=== PATIENT | female | born 1940 | race American Indian/Alaskan Native ===

== ENCOUNTER 2018-03-17 13:07 | Outpatient (CLI) | payer OTHER | END 2018-03-17 17:00 | disposition home or self-care (01) | LOC: RAD 13:07 | DX: S22.32XA Fracture of one rib, left side, initial encounter for closed fracture (principal); S22.31XA Fracture of one rib, right side, initial encounter for closed fracture ==

== ENCOUNTER 2018-04-25 11:37 | Outpatient (CLI) | payer OTHER | END 2018-04-25 15:44 | disposition home or self-care (01) | LOC: RAD 11:37 | DX: M71.21 Synovial cyst of popliteal space [Baker], right knee (principal) | CPT/HCPCS: 73721 ==

== ENCOUNTER 2018-08-20 10:50 | Outpatient (CLI) | payer OTHER | END 2018-08-20 16:16 | disposition home or self-care (01) | LOC: MAMO-SONO 10:50 | DX: Z12.31 Encounter for screening mammogram for malignant neoplasm of breast (principal); Z87.898 Personal history of other specified conditions; N64.89 Other specified disorders of breast ==

== ENCOUNTER 2019-02-17 13:28 | Outpatient (CLI) | payer OTHER | END 2019-02-17 15:17 | disposition home or self-care (01) | LOC: RAD 13:28 | DX: J98.4 Other disorders of lung (principal) ==

== ENCOUNTER 2019-03-17 10:49 | Outpatient (CLI) | payer OTHER | END 2019-03-17 17:00 | disposition home or self-care (01) | LOC: MRI 10:49 | DX: R41.3 Other amnesia (principal); R51 Headache | CPT/HCPCS: 70551 ==

== ENCOUNTER → 2020-08-09 | Outpatient (CLI) | payer OTHER | END | disposition home or self-care (01) | LOC: MAMO-SONO 10:47 | PROVIDERS: ATTEND Radiology Diagnostic Radiology | DX: Z12.31 Encounter for screening mammogram for malignant neoplasm of breast (principal); N64.59 Other signs and symptoms in breast; R92.0 Mammographic microcalcification found on diagnostic imaging of breast ==

== ENCOUNTER → 2020-10-10 | Outpatient (CLI) | payer OTHER | END | disposition home or self-care (01) | LOC: MRI 11:18 | PROVIDERS: ATTEND Neurological Surgery | DX: M48.02 Spinal stenosis, cervical region (principal); Z98.1 Arthrodesis status | CPT/HCPCS: 72141 ==

== ENCOUNTER 2020-10-18 09:42 | Outpatient (CLI) | payer OTHER | END 2020-10-18 15:00 | disposition home or self-care (01) | LOC: LAB 09:42 | PROVIDERS: ATTEND Radiology Diagnostic Radiology | DX: Z51.81 Encounter for therapeutic drug level monitoring (principal) ==

== ENCOUNTER → 2020-10-18 | Outpatient (CLI) | payer OTHER | END | disposition home or self-care (01) | LOC: MRI 09:41 | DX: G93.89 Other specified disorders of brain (principal); I67.89 Other cerebrovascular disease; R41.3 Other amnesia | CPT/HCPCS: 70553; A9575 ==

== ENCOUNTER 2021-05-16 11:25 | Outpatient (CLI) | payer OTHER | END 2021-05-16 18:00 | disposition home or self-care (01) | LOC: TOM 11:25 | PROVIDERS: ATTEND Radiology Diagnostic Radiology | DX: K44.9 Diaphragmatic hernia without obstruction or gangrene (principal); K57.92 Diverticulitis of intestine, part unspecified, without perforation or abscess without bleeding; R10.84 Generalized abdominal pain ==

== ENCOUNTER 2021-09-12 13:05 | Outpatient (CLI) | payer OTHER | END 2021-09-12 14:00 | disposition home or self-care (01) | LOC: MAMO-SONO 13:05 | PROVIDERS: ATTEND Radiology Diagnostic Radiology | DX: Z12.31 Encounter for screening mammogram for malignant neoplasm of breast (principal) ==

== ENCOUNTER 2022-01-08 11:32 | Outpatient (CLI) | payer OTHER | END 2022-01-08 12:00 | disposition home or self-care (01) | LOC: SONOGRAMA 11:32 | PROVIDERS: ATTEND Neurological Surgery | DX: M54.59 Other low back pain (principal); N39.0 Urinary tract infection, site not specified; N32.0 Bladder-neck obstruction; N31.0 Uninhibited neuropathic bladder, not elsewhere classified; M48.061 Spinal stenosis, lumbar region without neurogenic claudication ==

== ENCOUNTER 2022-04-19 10:17 | Outpatient (CLI) | payer OTHER | END 2022-04-19 10:20 | disposition home or self-care (01) | LOC: TOM 10:17 | PROVIDERS: ATTEND Neurological Surgery | DX: R51.9 Headache, unspecified (principal); R42 Dizziness and giddiness ==

== ENCOUNTER → 2022-10-12 | Outpatient (CLI) | payer OTHER | END | disposition home or self-care (01) | LOC: MRI 13:48 | PROVIDERS: ATTEND Neurological Surgery | DX: M54.59 Other low back pain (principal); M48.061 Spinal stenosis, lumbar region without neurogenic claudication | CPT/HCPCS: 72148 ==

== ENCOUNTER 2022-12-26 12:15 | Outpatient (CLI) | payer OTHER | END 2022-12-26 13:15 | disposition home or self-care (01) | LOC: RAD 12:15 | PROVIDERS: ATTEND Neurological Surgery | DX: M54.59 Other low back pain (principal) ==

== ENCOUNTER 2022-12-26 13:40 | Outpatient (CLI) | payer OTHER | END 2022-12-26 13:41 | disposition home or self-care (01) | LOC: NUCLEAR 13:40 | PROVIDERS: ATTEND Neurological Surgery | DX: M48.061 Spinal stenosis, lumbar region without neurogenic claudication (principal); M54.50 Low back pain, unspecified ==

== ENCOUNTER 2023-10-01 09:50 | Outpatient (CLI) | payer OTHER | END 2023-10-01 13:32 | disposition home or self-care (01) | LOC: TOM 09:50 | PROVIDERS: ATTEND Neurological Surgery | DX: M54.50 Low back pain, unspecified (principal); M53.3 Sacrococcygeal disorders, not elsewhere classified; M54.9 Dorsalgia, unspecified; N39.0 Urinary tract infection, site not specified ==

== ENCOUNTER 2024-01-08 10:23 | Outpatient (CLI) | payer OTHER | END 2024-01-08 11:00 | disposition home or self-care (01) | LOC: SONOGRAMA 10:23 | PROVIDERS: ATTEND Radiology Diagnostic Radiology | DX: E03.9 Hypothyroidism, unspecified (principal) ==

== ENCOUNTER → 2024-04-27 | Outpatient (CLI) | payer OTHER | END | disposition home or self-care (01) | LOC: MRI 09:49 | PROVIDERS: ATTEND Neurological Surgery | DX: M54.2 Cervicalgia (principal); M48.02 Spinal stenosis, cervical region; Z98.1 Arthrodesis status | CPT/HCPCS: 72141 ==

== ENCOUNTER 2024-08-25 09:11 | Outpatient (CLI) | payer OTHER | END 2024-08-25 09:30 | disposition home or self-care (01) | LOC: RAD 09:11 | PROVIDERS: ATTEND Neurological Surgery | DX: M54.50 Low back pain, unspecified (principal) ==

== ENCOUNTER 2024-12-01 12:25 | Outpatient (CLI) | payer OTHER | END 2024-12-04 14:20 | disposition home or self-care (01) | LOC: MRI 12:25 | PROVIDERS: ATTEND Neurological Surgery | DX: M54.50 Low back pain, unspecified (principal) | CPT/HCPCS: 72148 ==

== ENCOUNTER → 2024-12-08 | Outpatient (CLI) | payer OTHER | END | disposition home or self-care (01) | LOC: TOM 11:06 | PROVIDERS: ATTEND Neurological Surgery | DX: R10.9 Unspecified abdominal pain (principal) ==